=== PATIENT | male | born 1955 | race Caucasian/White ===

== ENCOUNTER → 2025-05-29 05:00 | Outpatient (REF) | payer MEDICARE, SELFPAY ==
[2025-05-29 08:49] LABS: Hematocrit 30.6 % (40-54); Hemoglobin 9.4 g/dL (13.0-16.5); Mean Corp Hgb Conc 30.7 g/dL (32-36); Mean Corpuscular Volume 100.3 fL (80-94); Mean Platelet Vol. 8.7 fl (6.2-12.0); Platelet Count 275 K/mm3 (150-450); RBC Distribution Width CV 16.9 % (11.6-14.6); RBC Distribution Width SD 62.1 fl (35.1-43.9); Red Blood Count 3.05 M/mm3 (4.6-6.2); White Blood Count 6.4 K/mm3 (4.4-11.0)
[2025-05-29 09:23] LABS: AST(SGOT) 40 U/L (<=37); Alanine Aminotransfer ALT/SGPT 36 U/L (<=46); Albumin, Serum 2.5 g/dL (3.4-4.8); Alkaline Phosphatase 294 U/L (40-129); Anion Gap 7 (5-15); BUN 37 mg/dL (4-19); BUN/Creat Ratio 34.2 RATIO (10-20); Calcium,Total 8.4 mg/dL (7.6-11.0); Carbon Dioxide 27.4 mmol/L (21.0-32.0); Chloride 104 mmol/L (98-108); Globulin 3.7 g/dL (2.2-4.2); Glucose 100 mg/dL (70-99); Potassium 5.5 mmol/L (3.3-5.1)
[2025-05-29 09:37] LABS: Vitamin D,25 Hydroxy < 6.0 ng/mL (30-100)
== END ==
LOC: OLS.ACW300 05:00
PROVIDERS: Visit Provider Family Medicine
DX: C61 Malignant neoplasm of prostate (principal); T83.511D Infection and inflammatory reaction due to indwelling urethral catheter, subsequent encounter; C79.51 Secondary malignant neoplasm of bone; B95.62 Methicillin resistant Staphylococcus aureus infection as the cause of diseases classified elsewhere
CPT/HCPCS: 36415; 80053; 82306; 83036; 84443; 85027

== ENCOUNTER → 2025-05-31 05:00 | Outpatient (REF) | payer MEDICARE, SELFPAY ==
[2025-05-31 07:37] LABS: Ferritin 803 ng/mL (37-417); Iron 78 ug/dL (65-175); Iron Binding Capacity,Unsat 55 ug/dL (228-428)
[2025-05-31 08:37] LABS: Iron Binding Capacity,Total 133 ug/dL (250-450)
== END ==
LOC: OLS.ACW300 05:00
PROVIDERS: Visit Provider Family Medicine
DX: C61 Malignant neoplasm of prostate (principal); T83.511D Infection and inflammatory reaction due to indwelling urethral catheter, subsequent encounter; C79.51 Secondary malignant neoplasm of bone; B95.62 Methicillin resistant Staphylococcus aureus infection as the cause of diseases classified elsewhere
CPT/HCPCS: 36415; 82728; 83540; 83550